=== PATIENT | male | born 1955 | race Caucasian/White ===

== ENCOUNTER → 2017-04-02 | Outpatient (REF) | payer OTHER ==
[2017-04-02 14:00] LABS: REASON FOR REVIEW COMPREHENSIVE REVIEW; SLIDE REVIEW Report; SOURCE PERIPHERAL SMEAR
== END ==
LOC: M LAB REF 13:25
DX: D73.81 Neutropenic splenomegaly (principal)
CPT/HCPCS: 88300

== ENCOUNTER → 2017-04-23 | Outpatient (REF) | payer OTHER ==
[2017-04-23 15:30] LABS: HIV 1&2 SCREEN CENTAUR NEGATIVE (NEGATIVE)
[2017-04-25 10:17] LABS: HEPATITIS C QUANTITATION HCV Not Detected IU/mL (.)
== END ==
LOC: M LAB REF 13:05
DX: D70.9 Neutropenia, unspecified (principal)

== ENCOUNTER → 2023-04-20 | Outpatient (REF) | payer MEDICARE | LOC: M SFHCPLAZ 10:54 | PROVIDERS: ATTEND Nurse Practitioner Family | DX: R21 Rash and other nonspecific skin eruption (principal) ==

== ENCOUNTER 2023-07-31 07:19 | Day surgery (SDC) | payer MEDICARE ==
[~2023-07-31] VITALS: Ht 182.9 cm; Wt 102.1 kg
[~2023-07-31 07:19] MED LIST: B-12100010 PO; BUSP10TA PO; D 10CHW PO; THERTAB52 PO; TYLE650T38 PO
[2023-07-31] MEDS: NS 1,000 ML IV ONE (08:00)
[2023-07-31] MEDS ORDERED: propofoL 500 MG/50 ML VIAL As Ordered ONE (09:16)
[2023-07-31] MEDS ORDERED: propofoL 200 MG/20 ML VIAL As Ordered ONE (09:16)
[2023-07-31] MEDS ORDERED: LIDOCAINE 2% 100MG/5ML SDV (FOR ANES.) As Ordered ONE (09:18)
[2023-07-31 10:27] VITALS: BP 155/97; TEMP 97.3; O2SAT 99
== END 2023-07-31 10:30 | disposition home or self-care (01) ==
LOC: M OPP 07:19
PROVIDERS: ATTEND Internal Medicine Gastroenterology
DX: Z12.11 Encounter for screening for malignant neoplasm of colon (principal); Z12.12 Encounter for screening for malignant neoplasm of rectum; D12.4 Benign neoplasm of descending colon; D12.0 Benign neoplasm of cecum; K64.8 Other hemorrhoids; K64.4 Residual hemorrhoidal skin tags; G47.30 Sleep apnea, unspecified